=== PATIENT | male | born 1950 | race Caucasian/White ===

== ENCOUNTER → 2016-05-03 | Outpatient (CLI) | payer OTHER ==
[2016-05-03 09:54] LABS: ASPARTATE AMINO TRANSFERASE 26 IU/L (21-57); BILIRUBIN,TOTAL 0.4 mg/dL (0.3-1.2); BLOOD UREA NITROGEN 15 mg/dL (7-22); BUN/CREATININE RATIO 18.75 (6-20); CALCIUM 9.2 mg/dL (8.7-10.7); CHLORIDE 105 meq/L (98-112); CREATININE 0.8 mg/dL (0.70-1.50); EST GLOMERULAR FILTRATION > 60 (>60 ml/min/1.73m(2)); GLUCOSE 172 mg/dL (78-110); HDL CHOLESTEROL 29 mg/dL (40-150); POTASSIUM 4.7 meq/L (3.8-5.2); SODIUM 141 meq/L (135-145); TOTAL PROTEIN 6.7 g/dL (6.1-8.0); TRIGLYCERIDES 166 mg/dL (44-200)
[2016-05-03 11:25] LABS: HEMOGLOBIN A1C 8.03 % (4.2-6.0); MEAN BLOOD GLUCOSE (CALC) 181.399 mg/dL
== END ==
LOC: MOB LAB 08:18
PROVIDERS: ATTEND Family Medicine
DX: E11.9 Type 2 diabetes mellitus without complications (principal); Z79.4 Long term (current) use of insulin; E78.5 Hyperlipidemia, unspecified; I10 Essential (primary) hypertension; F17.210 Nicotine dependence, cigarettes, uncomplicated
CPT/HCPCS: 36415; 80053; 80061; 83036

== ENCOUNTER → 2016-05-07 | Outpatient (CLI) | payer OTHER | LOC: MMPC 09:00 | PROVIDERS: ATTEND Family Medicine | DX: E11.9 Type 2 diabetes mellitus without complications (principal); I10 Essential (primary) hypertension | CPT/HCPCS: 99213; G0463 ==

== ENCOUNTER → 2016-07-02 | Outpatient (CLI) | payer OTHER ==
--- NOTE | 2016-07-02 11:26 | DI ---
RIGHT THUMB EXAM, 07/02/2016 11:07 AM: Clinical History: Right thumb pain. Previous Exam: None at this facility. 3 views are submitted. There is no acute soft tissue, osseous, or joint abnormality. Mild degenerativ e arthritic changes are present in the IP joint and in the first carpometacarpal joint. 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 On the AP projection of the, which shows the wrist to be in the lateral projection, there is a bony density dorsal to the daphne chong bone that probably is related to old trauma. Vascular calcifications are present in the radial a nd ulnar arteries in a pattern typical of patients who have diabetes. Readin. Degenerative arthritic changes of the IP joint of the common and the first carpometacarpal joint. 2. Vascular calcifications suggesting diabetes.
== END ==
LOC: ORTHO 11:17
PROVIDERS: ATTEND Orthopaedic Surgery
DX: M79.644 Pain in right finger(s) (principal); M18.11 Unilateral primary osteoarthritis of first carpometacarpal joint, right hand; F17.200 Nicotine dependence, unspecified, uncomplicated
CPT/HCPCS: 73140

== ENCOUNTER → 2016-07-05 | Outpatient (CLI) | payer OTHER ==
[2016-07-05 08:46] LABS: BLOOD UREA NITROGEN 12 mg/dL (7-22); BUN/CREATININE RATIO 17.14 (6-20); EST GLOMERULAR FILTRATION > 60 (>60 ml/min/1.73m(2))
--- NOTE | 2016-07-05 13:39 | EKG ---
[address] [address] Measurements Intervals [place] Rate: 56 P: 54 CT: 190 QRS: 35 QRSD: 110 T: 30 QT: 432 QTc: 424 Interpretive Statements SINUS BRADYCARDIA No previous ECG available for comparison Electronically Signed On 07-06-16 09:54:29 MDT by Hipolito Marie MD [email or web address]
== END ==
LOC: EKG 07:53
PROVIDERS: ATTEND Orthopaedic Surgery
DX: I10 Essential (primary) hypertension (principal); E11.9 Type 2 diabetes mellitus without complications; R00.1 Bradycardia, unspecified
CPT/HCPCS: 36415; 80048; 93005; 93010

== ENCOUNTER 2016-07-06 11:19 | Day surgery (SDC) | payer OTHER ==
[~2016-07-06 11:19] MED LIST: BUPivacaine Inj 0.25% PF - 10ml vial ONE; LIDOCAINE 2%/ EPI 1:200,000 - 20 ML VIAL ONE; MEPIVACAINE HCL/PF 20 MG/1 ML IV ONE; MIDAZOLAM 5 MG/1 ML ONE; fentaNYL Inj 100 MCG/2 ML VIAL ONE
[2016-07-06] MEDS ORDERED: LIDOCAINE W/ SODIUM BICARB 0.5 ML SYR ONE (11:20)
[2016-07-06] MEDS ORDERED: Lactated Ringers 1,000 ML PRIMARY IV ONE (11:20)
[2016-07-06] MEDS ORDERED: ceFAZolin Inj 2gm (Premix) 0 ML IV ONE (11:20)
[2016-07-06] MEDS ORDERED: ceFAZolin 1 GM VIAL ONE (11:36)
[2016-07-06] MEDS ORDERED: ceFAZolin Inj 3 GM in Sodium Chloride 0.9% 100 ML IV ONE (12:30)
--- NOTE | 2016-07-06 12:50 | CRNA.PROCE ---
Nerve Block Documentation - - Safety Measures: Time Out Taken, Site Verified - - Type of Nerve Block Used: Right Axillary Block (For Trigger thumb release- primary anesthetic. Tourniquet will be used.) Position for Nerve Block: Supine Moniters Used During Block: EKG, SPO2, NIBP Oxygen Sumpplented: Yes Sedation Used - Enter Amount in Comment Field: Midazolam (mg): Yes (3 mg), Fentanyl (mcg): Yes (50 mcgs) Skin Prep Used: ChloroPrep (Twice) Technique: Nerve Stimulator Nerve Block Needle Used: [employer] 50 mm Stimulation Hz: 1 Stimulation Staring mA: 1.8 Stimulation Ending mA: 0.48 Local Anesthetic - Enter Amt in Comment Field: 2 % Xylocaine with Epinephrine 1: 200,000 (mL): Yes (20 ml in 3 ml increments), 2 % Mepivacaine (mL): Yes (40 ml in 3 ml increments)
[2016-07-06] MEDS ORDERED: BISACODYL 10 MG SUPPOSITORY RECTAL PRN (14:14)
[2016-07-06] MEDS ORDERED: Prochlorperazine Tab 10 MG TAB PO PRN (14:14)
[2016-07-06] MEDS ORDERED: ACETAMINOPHEN 325 MG TABLET PO PRN (14:14)
[2016-07-06] MEDS ORDERED: CALCIUM CARBONATE 500 MG (TUMS) CHEWABLE TABLET PO PRN (14:14)
[2016-07-06] MEDS ORDERED: BISACODYL 5 MG TABLET PO PRN (14:14)
[2016-07-06] MEDS ORDERED: IBUPROFEN 400 MG TABLET PO PRN (14:14)
[2016-07-06] MEDS ORDERED: Ondansetron ODT Tab 8 MG TAB PO PRN (14:14)
[2016-07-06] MEDS ORDERED: MORPHINE SULFATE 2 MG/1 ML IVP PRN (14:14)
[2016-07-06] MEDS ORDERED: ONDANSETRON 4 MG/2 ML VIAL IVP PRN (14:14)
[2016-07-06] MEDS ORDERED: HYDROcodone-APAP 7.5 MG-325 MG TABLET PO PRN (14:14)
[2016-07-06] MEDS ORDERED: diphenhydrAMINE 25 MG CAPSULE PO PRN (14:14)
[2016-07-06] MEDS ORDERED: MAG HYDROX/AL HYDROX/SIMETH 30 ML SUSP PO PRN (14:14)
[2016-07-06] MEDS ORDERED: NORMAL SALINE 10 ML SYRINGE FLUSH IVP PRN (14:14)
[2016-07-06] MEDS ORDERED: Lactated Ringers 1,000 ML PRIMARY IV SCH (14:15)
[2016-07-06 14:52] VITALS: RESP 14
[2016-07-06 15:27] VITALS: TEMP 97.7
== END 2016-07-06 15:10 | disposition home or self-care (01) ==
LOC: SDSC 11:19
PROVIDERS: ATTEND Orthopaedic Surgery
DX: M65.311 Trigger thumb, right thumb (principal)
CPT/HCPCS: 26055; J3010; J0670; J0690; J2250; J7050; J7120

== ENCOUNTER → 2016-07-13 | Outpatient (CLI) | payer OTHER | LOC: MMPC 10:00 | PROVIDERS: ATTEND Orthopaedic Surgery | DX: M65.311 Trigger thumb, right thumb (principal) ==

== ENCOUNTER → 2016-07-27 | Outpatient (CLI) | payer OTHER | LOC: MMPC 10:00 | PROVIDERS: ATTEND Orthopaedic Surgery | DX: M65.311 Trigger thumb, right thumb (principal); Z98.890 Other specified postprocedural states ==

== ENCOUNTER → 2016-07-30 | Outpatient (CLI) | payer OTHER ==
[2016-07-30 10:24] LABS: BASOPHILS # (AUTO) 0.04 10*3/UL; BASOPHILS % (AUTO) 0.4 % (0-1); EOSINOPHILS # (AUTO) 0.64 10*3/UL; EOSINOPHILS % (AUTO) 6.7 % (0-8); HEMATOCRIT 45.4 % (42.0-52.0); HEMOGLOBIN 14.6 g/dL (14.0-18.0); MEAN CORPUSCULAR HEMOGLOBIN 29.2 PG (27-31); MEAN CORPUSCULAR HGB CONC 32.2 g/dL (33-37); MEAN CORPUSCULAR VOLUME 90.8 FL (80-90); MEAN PLATELET VOLUME 11.4 FL (7.4-12.2); MONOCYTES # (AUTO) 0.57 10*3/UL (0.3-0.8); NEUTROPHILS # (AUTO) 6.29 10*3/UL; NEUTROPHILS % (AUTO) 66.2 % (50-80)
[2016-07-30 10:28] LABS: BLOOD UREA NITROGEN 15 mg/dL (7-22); BUN/CREATININE RATIO 21.42 (6-20); CALCIUM 9.6 mg/dL (8.7-10.7); CHOL/HDL RATIO 5.95 RATIO (0-4.0); EST GLOMERULAR FILTRATION > 60 (>60 ml/min/1.73m(2)); HDL CHOLESTEROL 24 mg/dL (40-150); SERUM ALBUMIN 3.9 g/dL (3.5-4.8); SERUM CHOLESTEROL 143 mg/dL (120-200)
[2016-07-30 11:01] LABS: PLATELET MORPHOLOGY COMMENT NORMAL MORPHOLOGY (NORM); RBC MORPHOLOGY COMMENT NORMAL MORPHOLOGY (NORM); WBC MORPHOLOGY COMMENT NORMAL MORPHOLOGY (NORM)
[2016-07-30 11:16] LABS: HEMOGLOBIN A1C 8.52 % (4.2-6.0)
== END ==
LOC: MOB LAB 07:54
PROVIDERS: ATTEND Family Medicine
DX: E11.9 Type 2 diabetes mellitus without complications (principal); Z79.4 Long term (current) use of insulin; E78.5 Hyperlipidemia, unspecified; I10 Essential (primary) hypertension; E55.9 Vitamin D deficiency, unspecified; F17.200 Nicotine dependence, unspecified, uncomplicated; Z12.5 Encounter for screening for malignant neoplasm of prostate
CPT/HCPCS: 36415; 80053; 80061; 82306; 83036; 84443; 85025; G0103

== ENCOUNTER → 2016-08-06 | Outpatient (CLI) | payer OTHER | LOC: MMPC 09:00 | PROVIDERS: ATTEND Family Medicine | DX: E11.9 Type 2 diabetes mellitus without complications (principal); E55.9 Vitamin D deficiency, unspecified | CPT/HCPCS: 99213; G0463 ==

== ENCOUNTER → 2016-08-21 | Outpatient (CLI) | payer OTHER | LOC: MMPC 09:00 | PROVIDERS: ATTEND Physician Assistant Medical | DX: J98.8 Other specified respiratory disorders (principal) | CPT/HCPCS: 94640; 99213; G0463 ==

== ENCOUNTER → 2016-08-29 | Outpatient (CLI) | payer OTHER | LOC: MMPC 09:00 | PROVIDERS: ATTEND Family Medicine | DX: J42 Unspecified chronic bronchitis (principal) | CPT/HCPCS: 99214 ==

== ENCOUNTER → 2016-08-31 | Outpatient (CLI) | payer OTHER ==
--- NOTE | 2016-08-31 11:22 | DI ---
CT CHEST W/O CONTRAST,08/31/2016 10:02 AM: Clinical History: Chronic bronchitis Previous Exam: None at this facility. Findings: Multiple helically acquired CT images are obtained through the chest without contrast, and demonstrat e clear lungs. Coronary artery calcifications are seen. There is no infiltrate nor effusion. 2 peripheral vascular calcifications are also noted. The thoracic spine is normal. Impression: No acute findings. Coronary artery calcifications.
== END ==
LOC: CT 09:54
PROVIDERS: ATTEND Family Medicine
DX: J42 Unspecified chronic bronchitis (principal); F17.210 Nicotine dependence, cigarettes, uncomplicated; Z12.2 Encounter for screening for malignant neoplasm of respiratory organs
CPT/HCPCS: 71250

== ENCOUNTER → 2016-10-30 | Outpatient (CLI) | payer OTHER ==
[2016-10-30 11:11] LABS: BLOOD UREA NITROGEN 12 mg/dL (7-22); CALCIUM 9.2 mg/dL (8.7-10.7); CHOL/HDL RATIO 5.45 RATIO (0-4.0); EST GLOMERULAR FILTRATION > 60 (>60 ml/min/1.73m(2)); HDL CHOLESTEROL 24 mg/dL (40-150); SERUM ALBUMIN 3.6 g/dL (3.5-4.8); SERUM CHOLESTEROL 131 mg/dL (120-200)
[2016-10-30 11:15] LABS: HEMOGLOBIN A1C 8.39 % (4.2-6.0)
== END ==
LOC: MOB LAB 08:10
PROVIDERS: ATTEND Family Medicine
DX: E11.9 Type 2 diabetes mellitus without complications (principal); Z79.4 Long term (current) use of insulin; E78.00 Pure hypercholesterolemia, unspecified; I10 Essential (primary) hypertension; Z72.0 Tobacco use
CPT/HCPCS: 36415; 80053; 80061; 83036

== ENCOUNTER → 2016-11-05 | Outpatient (CLI) | payer OTHER | LOC: MMPC 09:00 | PROVIDERS: ATTEND Family Medicine | DX: E11.9 Type 2 diabetes mellitus without complications (principal); I10 Essential (primary) hypertension; E78.5 Hyperlipidemia, unspecified | CPT/HCPCS: 99213; G0463 ==